=== PATIENT | female | born 1955 | race Caucasian/White ===

== ENCOUNTER 2020-11-17 03:38 | Observation (INO) | payer OTHER, SELFPAY ==
[2020-11-17] VITALS (23 sets, daily range): BP systolic 123–160; BP diastolic 54–89; PULSE 50–69; RESP 12–19; TEMP 36.1–36.9; O2SAT 96–100
--- NOTE | ~2020-11-17 | XR_ITS ---
EXAMINATION: XR retrograde pyelo w/stent RT EXAM DATE: 11/17/2020 13:39 INDICATION: Right-sided retrograde pyelogram, stent placement TECHNIQUE: Fluoroscopy used during XR retrograde pyelo w/stent RT performed by Dr. Nathen vitale MD. Total fluoroscopic time of 0.3 minutes. A total of 5 images obtained for the exam. The D AP for this procedure was 146 radcm2. FINDINGS: The right ureter was cannulated, injected. Mild right-sided hydronephrosis. A double-J ure teral stent was placed. Correlate with procedure note. IMPRESSION: Mild right hydronephrosis. Stent in position. Reviewed, dictated and finalized at location A.
--- NOTE | ~2020-11-17 | XR_ITS ---
EXAMINATION: XR abdomen/kub 1V DATE: 11/17/2020 07:03 INDICATION: Right flank pain. TECHNIQUE: A supine view of the abdomen was obtained. COMPARISON: CT abdomen and pelvis 11/17/2020 FINDINGS: There is a 4 mm stone in proximal right ureter. There is a 4 mm stone in left kidney. There are no dilated loops of bowel. There are phleboliths in the pelvis. IMPRESSION: 1. 4 mm stone in proximal right ureter. 2. 4 mm left kidney stone. Reviewed, dictated and finalized at location A.
--- NOTE | ~2020-11-17 | CT_ITS ---
EXAMINATION: CT abdomen pelvis wo con DATE: 11/17/2020 06:06 INDICATION: Right flank pain. TECHNIQUE: Computed tomography (CT) of the abdomen and pelvis was performed without intravenous contr ast. Automated exposure control and iterative reconstruction technique were employed. The dose-length product was 282.06 mGy-cm. COMPARISON: None. FINDINGS: The visualized portions of the lung bases demonstrate mild atelectasis. A calcified left amaris ng nodule is consistent with old granulomatous disease. No pleural effusion. The heart size is normal . No pericardial effusion. The liver, gallbladder, spleen, pancreas, and adrenal glands are normal. T here is a 3 mm stone in right kidney. There is mild right hydronephrosis. There is a 4 mm stone in pr oximal right ureter. There is asymmetric edema around the right kidney. There is a 4 mm stone in left kidney. There are no dilated loops of bowel. There is a small sliding hiatal hernia. There are no pa thologically enlarged lymph nodes. There is no free intraperitoneal fluid. There are healing right ri b fractures. There is lumbar levoscoliosis and severe spondylosis. IMPRESSION: 1. 4 mm stone in proximal right ureter with mild right hydronephrosis. 2. Bilateral nonobstructing kidney stones. 3. Small sliding hiatal hernia. Reviewed, dictated and finalized at location A.
--- NOTE | 2020-11-17 04:01 | ED.ABDPAIN ---
HPI - Abdominal Pain General Chief Complaint: Abdominal Pain Stated Complaint: rt flank pain Time Seen by Provider: 11/17/20 03:49 History of Present Illness HPI narrative: Patient is a 65-year-old female who presents ER with right flank pain. Sudden onset this evening. No real radiation. Different than her chronic back pain. Associate with dark urination. Denies urinary frequency urgency or dysuria. She is without fevers or chills or sweats. She does have some mild nausea. No previous history of kidney stones or kidney infections. She is found no alleviating factors for discomfort. Related Data Home Medications Medication Instructions Recorded Confirmed famotidine [Pepcid] 20 mg PO DAILY 11/17/20 propranolol PO 11/17/20 Allergies Allergy/AdvReac Type Severity Reaction Status Date / Time codeine AdvReac Unknown Verified 05/10/18 14:56 Sulfa (Sulfonamide AdvReac Unknown Verified 05/10/18 14:56 Antibiotics) Review of Systems Review of Systems: All systems reviewed & are unremarkable except as noted in HPI and below Constitutional: Constitutional: Denies chills, Denies fever(s) and Denies weakness Cardiovascular: Cardiovascular: Denies chest pain and Denies radiating jaw, neck or arm pain Respiratory: Respiratory: Denies cough and Denies dyspnea Gastrointestinal: Gastrointestinal: Denies abdominal pain, Denies diarrhea, Reports nausea and Denies vomiting Genitourinary: Genitourinary: Denies hematuria, Denies nocturia, Denies dysuria and Reports flank pain Comments: Dark-colored urine Musculoskeletal: Musculoskeletal: Denies back pain and Denies muscle cramps PMFSH Past Medical History Medical History (Updated 11/17/20 @ 06:57 by Darrick Siegel MD) Migraine Surgical History Surgical History (Updated 11/17/20 @ 04:01 by Darrick Siegel MD) History of tonsillectomy Social History Social History (Updated 11/17/20 @ 04:01 by Darrick Siegel MD) Smoking status: Never smoker Exam Narrative: Exam Narrative: GENERAL: Uncomfortable-appearing, well-nourished, and in no acute distress. HEAD: Normocephalic, atraumatic. ENT: Mucous membranes moist. CHEST: Clear to auscultation. No respiratory distress. HEART: Regular rate and rhythm. Normal peripheral pulses. ABDOMEN: Soft, nontender, nondistended. EXTREMITIES: Normal range of motion. No edema. SKIN: Warm, dry, no rash. NEURO: Alert and oriented x3. Course Reevaluation(s) Reevaluation #1: Upon initial evaluations patient's was very angry at the nurse for having missed an IV stick and began belittling him. I informed the that this behavior would not be tolerated in the ER. He then proceeded to get up and get more angry. I discussed with the that we were here to treat his and make her feel better that we understood his concerns. Patient then sat down became more quiet. Date: 11/17/20 Time: 04:25 Reevaluation #2: Patient informed of results. Discussed case with Dr. Bah. Unfortunately patient had a dose of ibuprofen at midnight and another 1-2 doses yesterday afternoon. She will not be able to get lithotripsy today but he can take her to have a stent. Admit for [place]. Date: 11/17/20 Time: 06:57 Vital Signs Vital signs: Vital Signs Temperature 97.8 F 11/17/20 03:42 Pulse Rate 65 11/17/20 03:42 Respiratory Rate 18 11/17/20 03:42 Blood Pressure 160/89 H 11/17/20 03:42 Pulse Oximetry 100 11/17/20 03:42 Temperature 97.8 F 11/17/20 05:01 Pulse Rate 52 L 11/17/20 06:09 Respiratory Rate 16 11/17/20 06:09 Blood Pressure 130/66 11/17/20 06:09 Pulse Oximetry 98 11/17/20 06:09 MDM - Abdominal Pain Lab Data Result diagrams: 11/17/20 04:06 11/17/20 04:49 Labs: Lab Results 11/17/20 11/17/20 11/17/20 Range/Units 04:06 04:49 05:18 WBC 8.0 (4.5-10.0) K/mm3 RBC 3.81 L (4.2-5.4) M/mm3 Hgb 12.8 (12.0-15.0) g/dL Hct
[2020-11-17 04:12] LABS: Basophils Absolute Auto 0.1 K/mm3 (0.0-0.1); Basophils Percent Auto 0.6 % (0.2-1.2); Eosinophils Absolute Auto 0.2 K/mm3 (0-0.3); Eosinophils Percent Auto 2.3 % (0-4.4); Hematocrit 39.1 % (37.0-47.0); Hemoglobin 12.8 g/dL (12.0-15.0); Immature Granulocyte Absolute 0.03 K/mm3 (0.00-0.031); Immature Granulocyte Percent A 0.4 % (0-0.5); Lymphocytes Absolute Auto 1.49 K/mm3 (0.9-3.2); Lymphocytes Percent Auto 18.7 % (18.3-44.2); Mean Corpuscular HGB Conc 32.7 g/dl (32-36); Mean Corpuscular Hemoglobin 33.6 pg (26-34); Mean Corpuscular Volume 102.6 fl (80-100); Monocytes Absolute Auto 0.9 K/mm3 (0.1-0.6); Monocytes Percent Auto 11.7 % (2.6-8.5); Neutrophils Absolute Auto 5.3 K/mm3 (1.3-6.7); Neutrophils Percent Auto 66.3 % (45.5-73.1); Platelet Count Result 241 k/mm3 (150-375); Red Blood Count 3.81 M/mm3 (4.2-5.4); Red Cell Distribution Width 12.6 % (11.5-14.5)
[2020-11-17] MEDS: ONDANSETRON INJ 4 MG/2 ML VIAL IV PUSH ×2 (04:29→07:09)
[2020-11-17] MEDS: MORPHINE SULFATE (*CRX) 4 MG/ML INJ IV PUSH ×2 (04:31→08:34)
[2020-11-17] MEDS: SODIUM CHLORIDE 0.9% IV 1,000 ML 999 ML IV CONT (04:34)
--- NOTE | 2020-11-17 04:47 | PC.NURSE ---
Patient updated on need of urine specimen. Patient states she was willing to attempt to void and get specimen via clean catch. While attempting to get patient out of bed, patient states she was too nauseous still and is unable to get out of bed. Patient educated on catheter and agreed to use catheter for urine collection.
--- NOTE | 2020-11-17 04:48 | PC.NURSE ---
of pt stated We'll just go to [facility] after failed IV attempt. Pts stated I dont want this RN coming back in the room again .
--- NOTE | 2020-11-17 04:51 | PC.NURSE ---
redrew pt for hemolyzed green top at this time
[2020-11-17 05:09] LABS: Anion Gap 5 mmol/L (8-16); Blood Urea Nitrogen 18 mg/dL (7-17); Calcium 8.4 mg/dL (8.4-10.2); Carbon Dioxide 26 mmol/L (22-30); Chloride 108 mmol/L (98-107); Estimated CRCL calculation 48 ml/min; Estimated Glomerular Filt Rate > 60; Glucose 138 mg/dL (65-105); Potassium 4.1 mmol/L (3.4-5.0); Sodium 139 mmol/L (137-145)
[2020-11-17 05:42] LABS: Add Urine Microscopic? YES; Appearance Urine Cloudy (Clear); Bacteria Urine Trace /hpf; Bilirubin Urine Negative (Negative); Blood Urine 3+ (Negative); Color Urine Yellow (Yellow); Glucose Urine UA Negative (Negative); Ketones Urine Trace mg/dL (Negative); Leukocyte Esterase Ur Negative LEU/UL (Negative); Mucus Urine Rare /lpf; Nitrate Urine Negative (Negative); Protein Urine 2+ mg/dL (Negative); RBC Urine >75 /hpf (0-2); Specific Grav Ur 1.016 (1.001-1.035); Urobilinogen Urine Negative mg/dL (<2.0)
--- NOTE | 2020-11-17 05:56 | PC.NURSE ---
Patient reports pain has significancy improved and does not want another dose of morphine at this time.
--- NOTE | 2020-11-17 07:50 | ADMGEN ---
This patient, Maricruz Starkey, was admitted to Medical Room 248-01. Patient/family oriented to hospital policies and general routines including ID bracelet, bed and alarms, visiting hours, pain management, procedures, bathroom and other care routines, personal items, smoking policy, room service/diet, and visiting hours. Information on how to activate the Rapid Response Team has been discussed. Patient/Family are encouraged to report perceived risks to care and to ask questions if they do not understand what they are told or what they should do.
[2020-11-17] MEDS: SODIUM CHLORIDE 0.9% IV 1,000 ML 125 ML IV CONT (08:33)
--- NOTE | 2020-11-17 10:33 | PC.NURSE ---
Report called to Kimberly dutta.
--- NOTE | 2020-11-17 11:13 | PM.IMHP ---
H&P: HPI History of Present Illness Date/Time: 11/17/20 11:13 This is a 65-year-old female admitted through the emergency room. She has no prior history of stone disease. She had acute onset of right flank pain last night. This prompted a visit to the emergency room. She was diagnosed with a 4 mm proximal right ureteral stone. She had some dark urine. No symptoms of urinary tract infection. No dysuria. She did not feel like she could go home from the emergency room so she would like intervention for her stone. Chief Complaint: Calculus ureter Review of Systems Review of Systems: All systems reviewed & are unremarkable except as noted in HPI and below PMFSH Past Medical History Medical History (Updated 11/17/20 @ 11:15 by Aramis Bah MD) Migraine Surgical History Surgical History (Updated 11/17/20 @ 04:01 by Darrick Siegel MD) History of tonsillectomy Family History Family History (Updated 11/17/20 @ 08:05 by Mine Turner RN) Mother Cerebrovascular accident Sibling Cerebrovascular accident Father Dementia Social History Social History (Updated 11/17/20 @ 04:01 by Darrick Siegel MD) Smoking status: Never smoker Alcohol intake: never Substance use: never Substance use type: does not use Spiritual care concerns: No Meds Home Medications and Allergies Home Medications Medication Instructions Recorded Confirmed Type famotidine [Pepcid] 20 mg PO DAILY 11/17/20 11/17/20 History propranolol 120 mg PO DAILY 11/17/20 11/17/20 History Allergies Allergy/AdvReac Type Severity Reaction Status Date / Time codeine AdvReac Severe Nausea Verified 11/17/20 07:58 Sulfa (Sulfonamide AdvReac Severe Hives Verified 11/17/20 07:58 Antibiotics) Vital Signs Vital Signs - 24 hr 11/17/20 03:42 11/17/20 03:49 11/17/20 04:49 Temperature 97.8 F Pulse Rate 65 53 L 50 L Respiratory Rate 18 16 12 Blood Pressure 160/89 H 160/89 H 147/80 H Pulse Oximetry 100 100 100 11/17/20 05:01 11/17/20 06:08 11/17/20 06:09 Temperature 97.8 F Pulse Rate 52 L 52 L 52 L Respiratory Rate 14 12 16 Blood Pressure 154/86 H 130/66 130/66 Pulse Oximetry 99 98 98 11/17/20 06:31 11/17/20 07:03 11/17/20 07:48 Temperature 97.0 F L Pulse Rate 53 L 66 52 L Respiratory Rate 14 16 16 Blood Pressure 134/67 132/76 149/67 H Pulse Oximetry 97 100 98 11/17/20 08:16 11/17/20 09:16 11/17/20 10:32 Temperature 97.1 F L Pulse Rate 52 L Respiratory Rate 16 16 Blood Pressure 153/64 H Pulse Oximetry 98 98 98 Exam Const: General: cooperative and in distress Nutritional Appearance: thin and underweight HENMT: Head: normal to inspection General nose exam: Normal external nose present Face and sinus: normal facial exam Eyes: General: appearance normal, both eyes and all related structures Resp: Effort & Inspection: normal respiratory effort and able to speak in complete sentences : General: Yes CVA tenderness Skin: General skin exam: normal color and no rashes or lesions noted Neuro: General: patient oriented x3 Extrem: General: normal to inspection Psych: Appearance: grossly normal H&P: Results Labs Labs: Short CBC 11/17/20 Range/Units 04:06 WBC 8.0 (4.5-10.0) K/mm3 Hgb 12.8 (12.0-15.0) g/dL Hct 39.1 (37.0-47.0) % Plt Count 241 (150-375) k/mm3 BMP 11/17/20 04:49 Sodium 139 Potassium 4.1 Chloride 108 H Carbon Dioxide 26 BUN 18 H Creatinine 0.80 Glucose 138 H Calcium 8.4 Urine 11/17/20 Range/Units 05:18 Urine Color Yellow (Yellow) Urine Appearance Cloudy H (Clear) Urine pH 7.0 (5.0-9.0) Ur Specific [place] 1.016 (1.001-1.035) Urine Protein 2+ H (Negative) mg/dL Urine Glucose (UA) Negative (Negative) mg/dL Assessment and Plan Assessment and plan (1) Obstruction of ureteropelvic junction (UPJ) due to stone: Code(s): N20.1 - Calculus of ureter Status: Acute A
--- NOTE | 2020-11-17 11:27 | WPDHPUPDATE1 ---
History and Physical Update Update Date/Time: 11/17/20 11:27 History and Physical has been reviewed, including an updated exam of the patient. There are NO changes in the patient's condition. Risks, benefits, and alternatives have been discussed and questions answered. Patient agrees to proceed with procedure. Proceed with cystoscopy, right retrograde pyelogram, right ureteral stent placement, possible ureteroscopy with stone extraction and laser.
--- NOTE | 2020-11-17 12:25 | PC.NURSE ---
To OR via stretcher. Family at bedside.
--- NOTE | 2020-11-17 12:35 | WPDANESEPPF ---
Anes - Initial Pre Proc Eval Procedure: Operation Date: 11/17/20 13:00 Proposed Procedures p Cystoscopy,Right Ureteroscopy,Right Retrograde Pyelogram,Right Stone Extraction,Possible Holmium Laser,Possible Stent Placement - Nathen Thrasher MD Date/Time: 11/17/20 12:35 Surgeon: Aramis Bah MD Pre Op Diagnosis: upj obstructing stone Patient Data Age: 65 Gender: F Height: 5 ft 2 in Weight: 52.1 kg Last Vital Signs Temp 36.2 C L 11/17/20 10:32 Pulse 52 L 11/17/20 10:32 Resp 16 11/17/20 10:32 BP 153/64 H 11/17/20 10:32 Pulse Ox 98 11/17/20 10:32 Allergies Allergy/AdvReac Type Severity Reaction Status Date / Time codeine AdvReac Severe Nausea Verified 11/17/20 07:58 Sulfa (Sulfonamide AdvReac Severe Hives Verified 11/17/20 07:58 Antibiotics) Home Medications Medication Instructions Recorded Confirmed Type famotidine [Pepcid] 20 mg PO DAILY 11/17/20 11/17/20 History propranolol 120 mg PO DAILY 11/17/20 11/17/20 History Laboratory Tests 11/17/20 11/17/20 11/17/20 04:06 04:49 05:18 WBC 8.0 K/mm3 K/mm3 (4.5-10.0) RBC 3.81 M/mm3 L M/mm3 (4.2-5.4) Hgb 12.8 g/dL g/dL (12.0-15.0) Hct 39.1 % % (37.0-47.0) MCV 102.6 fl H fl (80-100) MCH 33.6 pg pg (26-34) MCHC 32.7 g/dl g/dl (32-36) RDW 12.6 % % (11.5-14.5) Plt Count 241 k/mm3 k/mm3 (150-375) MPV 10.0 fl fl (7.4-10.4) Immature Gran % (Auto) 0.4 % % (0-0.5) Neut % (Auto) 66.3 % % (45.5-73.1) Lymph % (Auto) 18.7 % % (18.3-44.2) Yell % (Auto) 11.7 % H % (2.6-8.5) Eos % (Auto) 2.3 % % (0-4.4) Baso % (Auto) 0.6 % % (0.2-1.2) Lymph # (Auto) 1.49 K/mm3 K/mm3 (0.9-3.2) Yell # (Auto) 0.9 K/mm3 H K/mm3 (0.1-0.6) Eos # (Auto) 0.2 K/mm3 K/mm3 (0-0.3) Baso # (Auto) 0.1 K/mm3 K/mm3 (0.0-0.1) Abs Immat Gran (auto) 0.03 K/mm3 K/mm3 (0.00-0.031) Absolute Neuts (auto) 5.3 K/mm3 K/mm3 (1.3-6.7) Absolute Nucleated RBC 0.0 K/mm3 K/mm3 (0.0-0.012) Nucleated RBC % 0.0 % % (0.0-0.2) Sodium 139 mmol/L mmol/L (137-145) Potassium 4.1 mmol/L mmol/L (3.4-5.0) Chloride 108 mmol/L H mmol/L (98-107) Carbon Dioxide 26 mmol/L mmol/L (22-30) Anion Gap 5 mmol/L L mmol/L (8-16) BUN 18 mg/dL H mg/dL (7-17) Creatinine 0.80 mg/dL mg/dL (0.7-1.0) Estim Creat Clear Calc 48 ml/min ml/min Estimated GFR > 60 (59 - ) Glucose 138 mg/dL H mg/dL (65-105) Calcium 8.4 mg/dL mg/dL (8.4-10.2) Urine Color Yellow (Yellow) Urine Appearance Cloudy H (Clear) Urine pH 7.0 (5.0-9.0) Ur Specific [place] 1.016 (1.001-1.035) Urine Protein 2+ mg/dL H mg/dL (Negative) Urine Glucose (UA) Negative mg/dL mg/dL (Negative) Urine Ketones Trace mg/dL mg/dL (Negative) Ur Blood (Man) 3+ H (Negative) Urine Nitrate Negative (Negative) Urine Bilirubin Negative (Negative) Urine Urobilinogen Negative mg/dL mg/dL (<2.0) Leukocyte Esterase Rfl Negative KONSTANTIN/UL KONSTANTIN/UL (Negative) Urine RBC >75 /hpf H /hpf (0-2) Urine WBC 10-15 /hpf H /hpf Urine Bacteria Trace /hpf /hpf Urine Mucus Rare /lpf /lpf Patient hx anesthesia problems: none Family hx anesthesia problems: none PMFSH Past Medical History Medical History (Updated 11/17/20 @ 11:15 by Aramis Bah MD) Migraine Surgical History Surgical History History of tonsillectomy Family History Family History Mother Cerebrovascular accident
[2020-11-17] MEDS: LACTATED RINGERS 1,000 ML 30 ML IV CONT ×2 (12:53→13:47)
[2020-11-17] MEDS: ceFAZolin 2 GM/D5W 50 ML 2 GM/50 ML BAG IVPB (13:14)
--- NOTE | 2020-11-17 13:37 | P.OP_ITS ---
Procedure Note - Detailed Date of procedure: 11/17/20 Pre-op diagnosis: upj obstructing stone Right proximal ureteral calculus Post-op diagnosis: same Procedure performed: Cystoscopy, right retrograde pyelogram, right ureteroscopy with stone extraction, right ureteral stent placement 4.8 Turk[place] contour Description of procedure: Patient is taken to the operative suite and correctly identified. Once anesthesia was obtained she was placed in a dorsal lithotomy position and prepped and draped usual sterile fashion. Twenty-two Turkmen scope was inserted the bladder. There is no tumors noted. Right ureteral orifice was cannulated with a guidewire. We dilated with an 8/10 dilator. There rigid ureteral scope was then inserted into the ureter. The stone had migrated into the mid ureter. Was visualized. Using an escape basket retrieved and removed in 1 piece and sent it for analysis. Pyelogram was then performed to confirm placement of the stent. 4.8 Turkmen contour stent was then placed with the proximal end coiled in the renal pelvis and the distal end in the bladder. Bladder was drained. 2% viscous lidocaine was inserted into the urethra patient is taken recovery stable condition. She will follow up in a week's time for stent removal. Anesthesia: GLMA Surgeon: Nathen Thrasher MD Drains: Yes Packing: No Pathology: yes Complications: No immediate complications Condition: stable Disposition: PACU
--- NOTE | 2020-11-17 13:40 | PM.DS ---
DS: Admitting Diagnosis Admitting Diagnosis Admitting Diagnosis: Obstructing right ureteral calculus 4 mm DS: Discharge Diagnosis Discharge Diagnosis (1) Right ureteral calculus: Code(s): N20.1 - Calculus of ureter Status: Acute DS: Summary Hospital Course Reason for hospitalization: Obstructing right ureteral calculus with hydronephrosis Hospital Course: Patient was admitted for pain control and further management. She was taken to the operative suite where a cystoscopy, right retrograde pyelogram, right ureteroscopy with stone extraction, right ureteral stent placement 4.8 [place] contour was performed. Patient will be discharged to home once she tolerates a diet. She will follow up in a week's time for stent removal in the office and is to call for that appointment. Status at Discharge Functional status at discharge: independent ambulation Time Spent with Patient Time attestation: Total time spent providing and/or coordinating discharge services: Exam Const: General: cooperative and comfortable DS: Data Data Completed and Pending Pending studies at discharge: Pending at discharge 11/17/20 13:34 Surgical [PTH] Routine Labs on day of discharge: Labs from last 24 hours 11/17/20 11/17/20 11/17/20 05:18 04:49 04:06 WBC 8.0 RBC 3.81 L Hgb 12.8 Hct 39.1 MCV 102.6 H MCH 33.6 MCHC 32.7 RDW 12.6 Plt Count 241 MPV 10.0 Immature Gran % (Auto) 0.4 Neut % (Auto) 66.3 Lymph % (Auto) 18.7 [place] % (Auto) 11.7 H Eos % (Auto) 2.3 Baso % (Auto) 0.6 Lymph # (Auto) 1.49 [place] # (Auto) 0.9 H Eos # (Auto) 0.2 Baso # (Auto) 0.1 Abs Immat Gran (auto) 0.03 Absolute Neuts (auto) 5.3 Absolute Nucleated RBC 0.0 Nucleated RBC % 0.0 Sodium 139 Potassium 4.1 Chloride 108 H Carbon Dioxide 26 Anion Gap 5 L BUN 18 H Creatinine 0.80 Estim Creat Clear Calc 48 Estimated GFR > 60 Glucose 138 H Calcium 8.4 Urine Color Yellow Urine Appearance Cloudy H Urine pH 7.0 Ur Specific [place] 1.016 Urine Protein 2+ H Urine Glucose (UA) Negative Urine Ketones Trace Ur Blood (Man) 3+ H Urine Nitrate Negative Urine Bilirubin Negative Urine Urobilinogen Negative Leukocyte Esterase Rfl Negative Urine RBC >75 H Urine WBC 10-15 H Urine Bacteria Trace Urine Mucus Rare Discharge Plan Discharge Attending physician on discharge: Nathen Thrasher Discharging Clinician: Nathen Thrasher Patient Disposition: Home, Self-Care Activity: december shower Diet: regular Discharge Instructions: December discharged home when awake and alert. Follow-up next week for stent removal. Call for that appointment. Prescriptions for pain meds and antibiotics sent to patient's pharmacy at [facility] Patient Instructions: Antibiotic Form Stand Alone Forms: General Discharge Information Follow-up/Referrals: Nathen Thrasher MD [Physician] - (Follow up next week for stent removal. Call for appointment) Discharge Medications: Continued famotidine [Pepcid] 20 mg Tablet 20 mg PO DAILY RF: 0 propranolol 120 mg capsule,extended release 24 hr 120 mg PO DAILY RF: 0 Date of admission: 11/17/20 06:55 Primary Care Provider: Wesley,Kayode [place] Admitting Provider: Aramis Bah Attending physician on admission: Aramis Bah Condition: Stable
--- NOTE | 2020-11-17 15:00 | PC.NURSE ---
Return from OR via stretcher. Family at bedside.
[2020-11-17] MEDS: ACETAMINOPHEN 325 MG TABLET 650 MG PO (15:52)
== END 2020-11-17 18:40 | disposition home or self-care (01) ==
LOC: ANHED 06:57 → ANH2MED 07:17
PROVIDERS: Urology; Admitting Provider Urology; Emergency Provider Emergency Medicine; PCP General Practice; Visit Provider Urology
PROC: (CPT 52352; principal; 2020-11-17 13:00)
DX: N13.2 Hydronephrosis with renal and ureteral calculous obstruction (principal); K44.9 Diaphragmatic hernia without obstruction or gangrene
CPT/HCPCS: 52356; 36415; 51701; 74018; 74176; 74420; 80048; 81001; 82365; 85025; 87077; 87086; 87088; 87186; 88300; 96361; 96374; 96375; 96376; 99285; A9270; C1758; C1769; C2617; G0378; J0330; J0690; J1100; J2250; J2270; J2405; J2704; J3010; J7030; J7120; Q9966

== ENCOUNTER 2021-07-01 01:22 | Emergency (ER) | payer OTHER, SELFPAY ==
--- NOTE | ~2021-07-01 | CT_ITS ---
EXAMINATION: CT abdomen pelvis wo con EXAM DATE: 07/01/2021 02:45 INDICATION: Left flank pain hx of stones. TECHNIQUE: Spiral CT of the abdomen and pelvis was performed without contrast. Axial, coronal and sag ittal images were reviewed. The dose-length product (DLP) for this examination was 159.02 mGy-cm. T he exposure was tailored according to patient size (auto mA exposure control), and iterative reconstr uction (ASIR) was used as additional dose reduction technique. Comparison is made to prior examinatio n from 11/17/2020. FINDINGS: There is a 6 mm stone in the left ureteropelvic junction with mild to moderate obstructive nephropathy. Multiple pelvic calcifications are believed to be phleboliths. There is 2 mm right infer ior calyceal stone. Previously seen right UPJ stone has resolved. The uterus is unremarkable. The bladder is unremarkable. The liver, spleen, adrenal glands and pancreas are unremarkable. Gallbladd er is unremarkable. No biliary obstruction. There is no retroperitoneal or pelvic lymphadenopathy. The appendix is not positively visualized. There is small to moderate-sized gastroesophageal hiatal hernia, potentially could be causing the thickened appearance to the wall of this region cancer not e xcludable.. There is moderate amount of colonic stool. No free intraperitoneal gas. The heart is normal in size. There are no pericardial or pleural effusions. The lung bases are unremarkable. T here are no osteoblastic or osteolytic lesions identified. There is moderate left-sided levoscoliosis . Moderate to severe lumbar disc disease. IMPRESSION: 1. Left UPJ 6 mm stone, mild to moderate obstructive nephropathy. 2. Punctate right nephrolithiasis. 3. Small to moderate hiatal hernia with thickened appearing gastroesophageal junction wall; recommen d endoscopy to exclude cancer. 4. Moderate colonic stool. Reviewed, dictated and finalized at location A. RONMENTAL HEALTH AIDE IMPRESSION: 1. Left UPJ 6 mm stone, mild to moderate obstructive nephropathy. 2. Punctate right nephrolithiasis. 3. Small to moderate hiatal hernia with thickened appearing gastroesophageal j unction wall; recommend endoscopy to exclude cancer. 4. Moderate colonic stool.
--- NOTE | ~2021-07-01 | XR_ITS ---
EXAMINATION: XR abdomen/kub 1V EXAM DATE: 07/01/2021 06:15 INDICATION: L UPJ stone. TECHNIQUE: Frontal projection of the upper abdomen, frontal projection lower abdomen/pelvis for inter pretation. Correlation is made to CT abdomen pelvis from earlier same date. FINDINGS: Probable identification of the left UPJ stone, indicated lateral to the left L2 transverse process. There is moderate amount of colonic stool and gas. There is moderate lumbar levoscoliosis. There is no organomegaly. IMPRESSION: 1. Left UPJ stone identified. Reviewed, dictated and finalized at location A. [employer]
[2021-07-01 01:26] VITALS: BP 149/77; PULSE 72; RESP 18; TEMP 36.5; O2SAT 100
[2021-07-01 02:14] LABS: Basophils Percent Auto 0.2 % (0.2-1.2); Eosinophils Percent Auto 0.1 % (0-4.4); Hematocrit 37.5 % (37.0-47.0); Hemoglobin 12.8 g/dL (12.0-15.0); Immature Granulocyte Absolute 0.05 K/mm3 (0.00-0.031); Immature Granulocyte Percent A 0.4 % (0-0.5); Lymphocytes Absolute Auto 0.87 K/mm3 (0.9-3.2); Lymphocytes Percent Auto 7.3 % (18.3-44.2); Mean Corpuscular HGB Conc 34.1 g/dl (32-36); Mean Corpuscular Volume 99.7 fl (80-100); Mean Platelet Volume 9.9 fl (7.4-10.4); Monocytes Absolute Auto 1.4 K/mm3 (0.1-0.6); Monocytes Percent Auto 11.9 % (2.6-8.5); Neutrophils Absolute Auto 9.5 K/mm3 (1.3-6.7); Neutrophils Percent Auto 80.1 % (45.5-73.1); Platelet Count Result 239 k/mm3 (150-375); Red Blood Count 3.76 M/mm3 (4.2-5.4); Red Cell Distribution Width 12.4 % (11.5-14.5); White Blood Count 11.9 K/mm3 (4.5-10.0)
[2021-07-01 02:24] LABS: Alanine Aminotransferase 24 U/L (4-35); Albumin Level 4.2 g/dL (3.5-5.1); Alkaline Phosphatase 75 U/L (38-126); Anion Gap 6 mmol/L (8-16); Aspartate Amino Transferase 38 U/L (14-36); Blood Urea Nitrogen 17 mg/dL (7-17); Calcium 9.5 mg/dL (8.4-10.2); Carbon Dioxide 27 mmol/L (22-30); Chloride 98 mmol/L (98-107); Estimated Glomerular Filt Rate > 60; Glucose 123 mg/dL (65-110); Potassium 4.1 mmol/L (3.4-5.0); Sodium 131 mmol/L (137-145)
[2021-07-01 03:11] VITALS: BP 142/67; PULSE 64; RESP 16; O2SAT 100
[2021-07-01] MEDS: SODIUM CHLORIDE 0.9% IV 1,000 ML 999 ML IV CONT (03:30)
[2021-07-01] MEDS: ONDANSETRON INJ 4 MG/2 ML VIAL IV PUSH (03:32)
[2021-07-01 03:45] LABS: Add Urine Microscopic? YES; Appearance Urine Cloudy (Clear); Bacteria Urine Trace /hpf; Bilirubin Urine Negative (Negative); Blood Urine 3+ (Negative); Color Urine Yellow (Yellow); Glucose Urine UA Negative (Negative); Ketones Urine 1+ mg/dL (Negative); Leukocyte Esterase Ur Negative LEU/UL (Negative); Mucus Urine Rare /lpf; Nitrate Urine Negative (Negative); Protein Urine Negative (Negative); RBC Urine >75 /hpf (0-2); Specific Grav Ur 1.016 (1.001-1.035); Squamous Epithelial Cell Urine Occasional /hpf (Few); Urobilinogen Urine Negative mg/dL (<2.0); WBC Urine 16-20 /hpf
[2021-07-01 04:34] VITALS: BP 115/59; PULSE 65; RESP 16; O2SAT 100
--- NOTE | 2021-07-01 06:33 | ED.ABDPAIN ---
HPI - Abdominal Pain General Chief Complaint: Abdominal Pain Stated Complaint: Left abd pain,flank pain Time Seen by Provider: 07/01/21 01:55 Source: patient History of Present Illness HPI narrative: Patient presents with left-sided flank pain that started a couple days ago pain is getting progressively worse and radiating up her back she was concerned so she came to the ER for evaluation. She reports a history of right ureteral stone requiring stent placement earlier this year and she reports her symptoms are very similar to her prior stone. Reports her urine is in start but denies pain with urination or increased urinary frequency. Her pain is achy, constant, worse with moving around in certain body positions. Related Data Home Medications Medication Instructions Recorded Confirmed famotidine [Pepcid] 20 mg PO DAILY 11/17/20 11/17/20 propranolol 120 mg PO DAILY 11/17/20 11/17/20 Allergies Allergy/AdvReac Type Severity Reaction Status Date / Time codeine AdvReac Severe Nausea Verified 11/17/20 07:58 Sulfa (Sulfonamide AdvReac Severe Hives Verified 11/17/20 07:58 Antibiotics) Review of Systems Review of Systems: CONSTITUTIONAL: Denies fever, chills, or sweats. EYES: Denies visual changes, redness, or discharge. ENT: Denies rhinorrhea, congestion, sore throat, or otalgia. CARDIOVASCULAR: Denies chest pain, palpitations, or edema. RESPIRATORY: Denies cough or dyspnea. GASTROINTESTINAL: Denies nausea, vomiting, or diarrhea. GENITOURINARY: Denies dysuria or hematuria. SKIN: Denies rash or itching. MUSCULOSKELETAL: Denies joint pain, or myalgia. NEUROLOGIC: Denies headache, numbness, dizziness, or weakness. PSYCHIATRIC: Denies anxiety or depression. All systems reviewed & are unremarkable except as noted in HPI and below PMFSH Past Medical History Medical History Migraine Surgical History Surgical History History of tonsillectomy Family History Family History Mother Cerebrovascular accident Sibling Cerebrovascular accident Father Dementia Social History Social History Smoking status: Never smoker Alcohol intake: never Substance use: never Substance use type: does not use Spiritual care concerns: No Exam Narrative: GENERAL: Well-appearing, well-nourished, and in no acute distress. HEAD: Normocephalic, atraumatic. EYES: PERRLA and EOMI. ENT: Nares clear, no rhinorrhea or epistaxis. Mucous membranes moist. NECK: Supple. No masses. No JVD ABDOMEN: Soft, nontender, nondistended, normal active bowel sounds. BAKC: No midline back pain minimal CVA tenderness on the left EXTREMITIES: Normal range of motion. No edema. SKIN: Warm, dry, no rash. NEURO: No focal deficits. Alert and oriented x3. PSYCH: Normal mood and affect. Course Reevaluation(s) Reevaluation #1: Uurology is evaluating patient for proximal stone patient's pain is well controlled after Tylenol Date: 07/01/21 Time: 06:35 Vital Signs Vital signs: Vital Signs Temperature 36.5 C 07/01/21 01:26 Pulse Rate 72 07/01/21 01:26 Respiratory Rate 18 07/01/21 01:26 Blood Pressure 149/77 H 07/01/21 01:26 Pulse Oximetry 100 07/01/21 01:26 Temperature 36.5 C 07/01/21 01:26 Pulse Rate 62 07/01/21 06:39 Respiratory Rate 18 07/01/21 06:39 Blood Pressure 132/65 07/01/21 06:39 Pulse Oximetry 99 07/01/21 06:39 MDM - Abdominal Pain MDM Narrative Medical decision making narrative: H&P as above, vss, pt looks clinically well, exam reassuring, labs with hematuria otherwise clinically unremarkable, img with left UPJ stone, additional labs/img considered, symptomatic relief available as needed, patient was treated with Tylenol on reevaluation pt continues to looks clinically well, reports pain
[2021-07-01 06:39] VITALS: BP 132/65; PULSE 62; RESP 18; O2SAT 99
--- NOTE | 2021-07-01 06:47 | WPDURCON ---
Assessment and Plan Assessment and plan (1) Obstruction of ureteropelvic junction (UPJ) due to stone: Code(s): N20.1 - Calculus of ureter Status: Acute Additional Plan - patient to be discharged home with oral pain medication. - The patient instructed to stop all aspirin, nonsteroidal anti-inflammatories. The patient last use of ibuprofen was 2 days ago. - Offered the patient medical expulsive therapy, ureteroscopy, ureteral stenting, ESWL. given the location of the stone and visibility on KUB, Plan for outpatient ESWL procedure. risks of the procedure including but limited to infection, bleeding, pain, inability to fragment the stone, need for additional operations and complication of anesthesia discussed. The patient agrees to proceed with left ESWL later this week. Urology Consult Note HPI Date Seen: 07/01/21 Primary Care Provider: Dariana Rodriguez, LEIGHANN Consult Narrative Narrative: Maricruz Stakrey is a 65 year old female With a history of nephrolithiasis. She presented with nausea and abdominal pain. Patient was found on CT scan to have an obstructing left proximal ureteral stone. Urology was called to evaluate Review of Systems Constitutional: Constitutional: Reports as per HPI Eyes: Eyes: Reports no additional eye complaints ENT: Reports system reviewed and no additional complaints, except as documented Cardiovascular: Cardiovascular: Reports no additional cardiovascular complaints Respiratory: Respiratory: Reports no additional respiratory complaints Gastrointestinal: Gastrointestinal: Reports no additional gastrointestinal complaints and Reports nausea Musculoskeletal: Musculoskeletal: Reports no additional musculoskeletal complaints Psychiatric: Psychiatric: Reports no additional psychiatric complaints Endocrine: Endocrine: Reports no additional endocrine complaints [facility] Past Medical History Medical History Migraine Surgical History Surgical History History of tonsillectomy Family History Family History Mother Cerebrovascular accident Sibling Cerebrovascular accident Father Dementia Social History Social History Smoking status: Never smoker Alcohol intake: never Substance use: never Substance use type: does not use Spiritual care concerns: No Meds Home Medications and Allergies Home Medications Medication Instructions Recorded Confirmed Type famotidine [Pepcid] 20 mg PO DAILY 11/17/20 11/17/20 History propranolol 120 mg PO DAILY 11/17/20 11/17/20 History oxycodone-acetaminophen 1 tablet PO Q4H PRN #10 tablet 07/01/21 Rx Allergies Allergy/AdvReac Type Severity Reaction Status Date / Time codeine AdvReac Severe Nausea Verified 11/17/20 07:58 Sulfa (Sulfonamide AdvReac Severe Hives Verified 11/17/20 07:58 Antibiotics) Vital Signs Vital Signs - 24 hr 07/01/21 01:26 07/01/21 03:11 07/01/21 04:34 Temperature 36.5 C Pulse Rate 72 64 65 Respiratory Rate 18 16 16 Blood Pressure 149/77 H 142/67 H 115/59 L Pulse Oximetry 100 100 100 07/01/21 06:39 Temperature Pulse Rate 62 Respiratory Rate 18 Blood Pressure 132/65 Pulse Oximetry 99 Exam Narrative: patient is awake and alert. She is in no acute distress. Breathing unlabored. Abdomen is soft. She has no significant CVA tenderness at this time Results Labs CBC & Chem 7: 07/01/21 02:01 07/01/21 02:01 Labs: Short CBC 07/01/21 Range/Units 02:01 WBC 11.9 H (4.5-10.0) K/mm3 Hgb 12.8 (12.0-15.0) g/dL Hct 37.5 (37.0-47.0) % Plt Count 239 (150-375) k/mm3 BMP 07/01/21 02:01 Sodium 131 L Potassium 4.1 Chloride 98 Carbon Dioxide 27 BUN 17 Creatinine 0.90 Glucose 123 H Calcium 9.5 Li
== END 2021-07-01 06:53 | disposition home or self-care (01) ==
PROVIDERS: Emergency Provider Emergency Medicine; PCP Physician Assistant
DX: N13.8 Other obstructive and reflux uropathy (principal); N20.1 Calculus of ureter; N20.0 Calculus of kidney; K44.9 Diaphragmatic hernia without obstruction or gangrene
CPT/HCPCS: 36415; 74018; 74176; 80053; 81001; 85025; 87077; 87086; 87186; 96361; 96374; 96375; 99284; J0131; J2405; J7030

== ENCOUNTER → 2021-07-11 12:39 | Outpatient (CLI) | payer OTHER, SELFPAY ==
--- NOTE | ~2021-07-11 | XR_ITS ---
EXAMINATION: XR abdomen/kub 1V DATE: 07/11/2021 13:03 INDICATION: Left ureteral stone. TECHNIQUE: A supine view of the abdomen on 2 radiographs was obtained. COMPARISON: CT abdomen and pelvis 07/01/2021 FINDINGS: There are no dilated loops of bowel. There is a moderate volume of stool in the colon. Ther e are phleboliths in the pelvis. There is a 4 mm stone in proximal left ureter. IMPRESSION: 1. 4 mm stone in proximal left ureter. Reviewed, dictated and finalized at location A. CLOTH INSPECTOR
== END ==
PROVIDERS: PCP Physician Assistant; Visit Provider Nurse Practitioner Adult Health
DX: N20.1 Calculus of ureter (principal)
CPT/HCPCS: 74018

== ENCOUNTER 2021-07-13 17:05 | Observation (INO) | payer OTHER, SELFPAY ==
--- NOTE | ~2021-07-13 | XR_ITS ---
EXAMINATION: XR retrograde pyelo w/stent LT DATE: 07/14/2021 11:20 INDICATION: Left ureteral stone. TECHNIQUE: 6 intraoperative fluoroscopic views of the abdomen and pelvis were obtained. I was not pre sent. Fluoroscopy exposure time was 19 seconds. COMPARISON: Abdomen radiographs 07/13/2021 FINDINGS: There is a 4 mm stone in proximal left ureter. The left-sided retrograde pyelogram demonstr ates left hydronephrosis. The final images demonstrate a left internal ureteral stent in expected pos ition. IMPRESSION: 1. 4 mm stone in proximal left ureter with left internal ureteral stent in expected position. Reviewed, dictated and finalized at location A. RVISOR CONTINGENTS IMPRESSION: 1. 4 mm stone in proximal left ureter with left internal ureteral stent in expe cted position.
--- NOTE | ~2021-07-13 | XR_ITS ---
EXAMINATION: XR abdomen/kub 1V DATE: 07/13/2021 22:42 INDICATION: Kidney stone. Recent lithotripsy. TECHNIQUE: A supine view of the abdomen on 2 radiographs was obtained. COMPARISON: Abdomen radiographs 07/11/2021 FINDINGS: There are no dilated loops of bowel. There is a moderate volume of stool in the colon. Ther e is a 4 mm stone in proximal left ureter. IMPRESSION: 1. Unchanged 4 mm stone in proximal left ureter. Reviewed, dictated and finalized at location A. PROFESSIONAL
[2021-07-13 17:12] VITALS: BP 152/80; PULSE 80; RESP 18; TEMP 37; O2SAT 100
[2021-07-13 21:46] VITALS: BP 138/66; PULSE 73; O2SAT 100
--- NOTE | 2021-07-13 22:46 | ED.ABDPAIN ---
HPI - Abdominal Pain General Chief Complaint: Abdominal Pain Stated Complaint: Kidney Stone Time Seen by Provider: 07/13/21 22:29 Source: patient, RN notes reviewed and old records reviewed Mode of arrival: ambulatory Limitations: no limitations History of Present Illness HPI narrative: This is a 65 year old female with history of kidney stones s/p lithotripsy who presents for evaluation of left flank pain. She was diagnosed with left proximal ureteral stone 2 weeks ago. She had lithotripsy performed on 07/04/21. She has been taking Tylenol for her pain. She was doing well and having minimal pain until Friday. She was evaluated by urology and Friday with an xray. She was still found to have a 4 mm left proximal ureteral stone. She told them she want to try to pass . Her pain is located left flank and it intermittently radiates to her left lower abdomen. She has occasional nausea but denies fever, chills or vomiting. She denies hematuria or dysuria. Related Data Home Medications Medication Instructions Recorded Confirmed famotidine [Pepcid] 20 mg PO DAILY 11/17/20 11/17/20 propranolol 120 mg PO DAILY 11/17/20 11/17/20 Allergies Allergy/AdvReac Type Severity Reaction Status Date / Time codeine AdvReac Severe Nausea Verified 07/13/21 22:56 Sulfa (Sulfonamide AdvReac Severe Hives Verified 07/13/21 22:56 Antibiotics) Review of Systems Review of Systems: All systems reviewed & are unremarkable except as noted in HPI and below PMFSH Past Medical History Medical History (Updated 07/14/21 @ 01:17 by Rebecca Coleman MD) Bilateral kidney stones Migraine Scoliosis Surgical History Surgical History History of tonsillectomy Family History Family History Mother Cerebrovascular accident Sibling Cerebrovascular accident Father Dementia Social History Social History Smoking status: Never smoker Alcohol intake: never Substance use: never Substance use type: does not use Spiritual care concerns: No Exam Const: General: alert Nutritional Appearance: thin Orientation/consciousness: patient oriented x3 HENMT: Head: normocephalic and atraumatic Mouth: Yes Normal oral and palatal mucosa present, Yes lip normal and Yes oropharynx normal Throat: posterior oropharynx normal Eyes: Pupils: Equal, round and reactive pupils present EOM: EOMs intact bilaterally Chest: Chest palpation & inspection: normal inspection of the chest Resp: Effort & Inspection: normal respiratory effort and no retractions Auscultation: clear to auscultation bilaterally Cardio: Rate: regular rate Rhythm: regular rhythm Heart sounds: no murmurs GI: GI Palp: Yes Soft to palpation, No Tenderness to palpation present (GI) and No Guarding due to palpation present (GI) Auscultation: normal bowel sounds : General: Yes CVA tenderness on the left (mild) Back/Spine/Pelvis: Other: severe kyphosis and scoliosis Skin: General skin exam: normal color Neuro: General: patient oriented x3, moves all extremities and CN's II-XI intact bilaterally Course Reevaluation(s) Reevaluation #1: Patient reports pain is better . I discussed she will be admitted for stent placement, IV antibiotics and IV hydration. She is agreeable to admission. She has leukocytosis and low grade fever. On review of records, her urine culture was positive Date: 07/14/21 Time: 00:43 Consultations Consultation #1: I Discussed case with Dr. Metzger of urology. He recommends patient be admitted to hospitalist service due to fever and leukocytosis. He recommends given rocephin and make patient NPO. Patient will need to get stent placed later in day. Date: 07/14/21 Time: 00:42 Vital Signs Vital signs: Vital Signs Temperature 98.6 F 07/13/21 17:12 Pulse Rate 80 07/13/21 1
[2021-07-13 22:53] VITALS: BP 139/79; PULSE 88; RESP 18; O2SAT 100
[2021-07-13 23:08] VITALS: TEMP 37.8
[2021-07-13 23:22] LABS: Basophils Percent Auto 0.3 % (0.2-1.2); Eosinophils Absolute Auto 0.1 K/mm3 (0-0.3); Eosinophils Percent Auto 0.3 % (0-4.4); Hematocrit 37.5 % (37.0-47.0); Hemoglobin 12.7 g/dL (12.0-15.0); Immature Granulocyte Absolute 0.06 K/mm3 (0.00-0.031); Immature Granulocyte Percent A 0.4 % (0-0.5); Lymphocytes Absolute Auto 1.18 K/mm3 (0.9-3.2); Lymphocytes Percent Auto 7.8 % (18.3-44.2); Mean Corpuscular HGB Conc 33.9 g/dl (32-36); Mean Corpuscular Hemoglobin 34.3 pg (26-34); Mean Corpuscular Volume 101.4 fl (80-100); Monocytes Absolute Auto 1.5 K/mm3 (0.1-0.6); Neutrophils Absolute Auto 12.3 K/mm3 (1.3-6.7); Neutrophils Percent Auto 81.2 % (45.5-73.1); Platelet Count Result 307 k/mm3 (150-375); Red Cell Distribution Width 12.8 % (11.5-14.5); White Blood Count 15.2 K/mm3 (4.5-10.0)
[2021-07-13 23:48] LABS: Add Urine Microscopic? YES; Appearance Urine Clear (Clear); Bilirubin Urine Negative (Negative); Blood Urine 2+ (Negative); Color Urine Straw (Yellow); Glucose Urine UA Negative (Negative); Ketones Urine Trace mg/dL (Negative); Leukocyte Esterase Ur Negative LEU/UL (Negative); Mucus Urine Rare /lpf; Nitrate Urine Negative (Negative); Protein Urine Negative (Negative); RBC Urine 0-2 /hpf (0-2); Specific Grav Ur 1.006 (1.001-1.035); Squamous Epithelial Cell Urine Rare /hpf (Few); Urobilinogen Urine Negative mg/dL (<2.0); WBC Urine 0-3 /hpf
[2021-07-13] MEDS: oxyCODONE/ACETAMINOPHEN (*CRX) 5-325 MG TABLET 1 TABLET PO (23:50)
[2021-07-13] MEDS: ONDANSETRON HCL ODT 4 MG TABLET PO (23:50)
[2021-07-13 23:51] LABS: Alanine Aminotransferase 24 U/L (4-35); Albumin Level 4.2 g/dL (3.5-5.1); Alkaline Phosphatase 92 U/L (38-126); Anion Gap 7 mmol/L (8-16); Aspartate Amino Transferase 36 U/L (14-36); Bilirubin,Total 2.4 mg/dL (0.2-1.3); Blood Urea Nitrogen 18 mg/dL (7-17); Calcium 9.7 mg/dL (8.4-10.2); Carbon Dioxide 28 mmol/L (22-30); Chloride 95 mmol/L (98-107); Estimated CRCL calculation 33 ml/min; Estimated Glomerular Filt Rate 45; Glucose 101 mg/dL (65-110); Potassium 4.4 mmol/L (3.4-5.0); Sodium 130 mmol/L (137-145)
[2021-07-14] VITALS (14 sets, daily range): BP systolic 118–153; BP diastolic 50–74; PULSE 62–85; RESP 12–18; TEMP 35.8–36.8; O2SAT 97–100; BMI 19.1
[2021-07-14] MEDS: SODIUM CHLORIDE 0.9% IV 1,000 ML 999 ML IV CONT (02:36)
--- NOTE | 2021-07-14 03:15 | ADMGEN ---
This patient, Maricruz Starkey, was admitted to Medical Room 345-01. Patient/family oriented to hospital policies and general routines including ID bracelet, bed and alarms, visiting hours, pain management, procedures, bathroom and other care routines, personal items, smoking policy, room service/diet, and visiting hours. Information on how to activate the Rapid Response Team has been discussed. Patient/Family are encouraged to report perceived risks to care and to ask questions if they do not understand what they are told or what they should do.
[2021-07-14] MEDS: SODIUM CHLORIDE 0.9% IV 1,000 ML 125 ML IV CONT (03:41)
[2021-07-14] MEDS: ONDANSETRON INJ 4 MG/2 ML VIAL IV PUSH ×2 (03:50→07:52)
[2021-07-14] MEDS: MORPHINE SULFATE (*CRX) 2 MG/ML INJ IV PUSH ×2 (03:50→07:49)
--- NOTE | 2021-07-14 07:58 | WPDANESEPPF ---
Anes - Initial Pre Proc Eval Date/Time: 07/14/21 07:58 Pre Op Diagnosis: Obstructing L proximal ureteral stone, leukocytosi Patient Data Age: 65 Gender: F Height: 1.6 m Weight: 49 kg Last Vital Signs Temp 36.6 C 07/14/21 05:04 Pulse 77 07/14/21 05:04 Resp 16 07/14/21 05:04 BP 118/50 L 07/14/21 05:04 Pulse Ox 98 07/14/21 05:04 Allergies Allergy/AdvReac Type Severity Reaction Status Date / Time codeine AdvReac Severe Nausea Verified 07/13/21 22:56 Sulfa (Sulfonamide AdvReac Severe Hives Verified 07/13/21 22:56 Antibiotics) Home Medications Medication Instructions Recorded Confirmed Type famotidine [Pepcid] 10 mg PO BID 11/17/20 07/14/21 History propranolol 120 mg PO HS 11/17/20 07/14/21 History acetaminophen [Tylenol Ex Str 500 mg PO Q6H PRN 07/14/21 07/14/21 History Rapid Release] Laboratory Tests 07/13/21 07/13/21 07/13/21 22:58 23:06 23:06 WBC 15.2 K/mm3 H K/mm3 (4.5-10.0) RBC 3.70 M/mm3 L M/mm3 (4.2-5.4) Hgb 12.7 g/dL g/dL (12.0-15.0) Hct 37.5 % % (37.0-47.0) MCV 101.4 fl H fl (80-100) MCH 34.3 pg H pg (26-34) MCHC 33.9 g/dl g/dl (32-36) RDW 12.8 % % (11.5-14.5) Plt Count 307 k/mm3 k/mm3 (150-375) MPV 9.0 fl fl (7.4-10.4) Immature Gran % (Auto) 0.4 % % (0-0.5) Neut % (Auto) 81.2 % H % (45.5-73.1) Lymph % (Auto) 7.8 % L % (18.3-44.2) [place] % (Auto) 10.0 % H % (2.6-8.5) Eos % (Auto) 0.3 % % (0-4.4) Baso % (Auto) 0.3 % % (0.2-1.2) Lymph # (Auto) 1.18 K/mm3 K/mm3 (0.9-3.2) [place] # (Auto) 1.5 K/mm3 H K/mm3 (0.1-0.6) Eos # (Auto) 0.1 K/mm3 K/mm3 (0-0.3) Baso # (Auto) 0.0 K/mm3 K/mm3 (0.0-0.1) Abs Immat Gran (auto) 0.06 K/mm3 H K/mm3 (0.00-0.031) Absolute Neuts (auto) 12.3 K/mm3 H K/mm3 (1.3-6.7) Absolute Nucleated RBC 0.0 K/mm3 K/mm3 (0.0-0.012) Nucleated RBC % 0.0 % % (0.0-0.2) Sodium 130 mmol/L L mmol/L (137-145) Potassium 4.4 mmol/L mmol/L (3.4-5.0) Chloride 95 mmol/L L mmol/L (98-107) Carbon Dioxide 28 mmol/L mmol/L (22-30) Anion Gap 7 mmol/L L mmol/L (8-16) BUN 18 mg/dL H mg/dL (7-17) Creatinine 1.20 mg/dL H mg/dL (0.7-1.0) Estim Creat Clear Calc 33 ml/min ml/min Estimated GFR 45 L (59 - ) Glucose 101 mg/dL mg/dL (65-110) Calcium 9.7 mg/dL mg/dL (8.4-10.2) Total Bilirubin 2.4 mg/dL H mg/dL (0.2-1.3) AST 36 U/L U/L (14-36) ALT 24 U/L U/L (4-35) Alkaline Phosphatase 92 U/L U/L (38-126) Total Protein 7.0 g/dL g/dL (6.3-8.2) Albumin 4.2 g/dL g/dL (3.5-5.1) Urine Color Straw (Yellow) Urine Appearance Clear (Clear) Urine pH 6.0 (5.0-9.0) Ur Specific [place] 1.006 (1.001-1.035) Urine Protein Negative mg/dL mg/dL (Negative) Urine Glucose (UA) Negative mg/dL mg/dL (Negative) Urine Ketones Trace mg/dL mg/dL (Negative) Ur Blood (Man) 2+ H (Negative) Urine Nitrate Negative (Negative) Urine Bilirubin Negative (Negative) Urine Urobilinogen Negative mg/dL mg/dL (<2.0) Leukocyte Esterase Rfl Negative KONSTANTIN/UL KONSTANTIN/UL (Negative) Urine RBC 0-2 /hpf /hpf (0-2) Urine WBC 0-3 /hpf /hpf Ur Squamous Epith Cells Rare /hpf /hpf (Few) Urine Mucus Rare /lpf /lpf Patient hx anesthesia problems: none Family hx anesthesia problems: none Results Review: All pre-operative results and documents have been reviewed as part of the pre-operative evaluation. [facility] Past Medical History Medical History (Updated 07/14/21 @ 01:17 by Rebecca Morley
--- NOTE | 2021-07-14 09:27 | WPDURCON ---
Assessment and Plan Assessment and plan (1) Calculus of proximal left ureter: Code(s): N20.1 - Calculus of ureter Status: Acute Assessment and Plan: left proximal ureteral stone s/p unsuccessful ESWL - discussed left stent placement, technique, risks, benefits, and rationale-- discussed why in her situation (leukocytosis, DEE) a URS/LL would be deferred for a few weeks until cultures finalize and inflammation resolves; she agrees to proceed with left ureteral stent placement today (2) Leukocytosis: Qualifiers: Leukocytosis type: unspecified Qualified Code(s): D72.829 - Elevated white blood cell count, unspecified Code(s): D72.829 - Elevated white blood cell count, unspecified Status: Acute (3) Obstruction of ureteropelvic junction (UPJ) due to stone: Code(s): N20.1 - Calculus of ureter Status: Acute Urology Consult Note HPI Date Seen: 07/14/21 Requesting Physician: Sylvie Virk PA-C Primary Care Provider: Dariana Rodriguez, PA Consult Narrative Narrative: Maricruz Starkey is a 65 year old female who was seen about two weeks ago with left ureteral stone. She had ESWL. Culture was E. coli. She re presented last night for persistent left flank pain. KUB clearly shows stone in the left proximal ureter. WBC elevated, neutrophil predominant. Creat elevated slightly to 1.2. UA appears okay. Vitals stable. Stone does not appear appreciably different from CT on 07/01. Review of Systems Review of Systems: All systems reviewed & are unremarkable except as noted in HPI and below PMFSH Past Medical History Medical History Bilateral kidney stones Migraine Scoliosis Surgical History Surgical History History of tonsillectomy Family History Family History Mother Cerebrovascular accident Sibling Cerebrovascular accident Father Dementia Social History Social History Smoking status: Never smoker Alcohol intake: never Substance use: never Substance use type: does not use Spiritual care concerns: No Meds Home Medications and Allergies Home Medications Medication Instructions Recorded Confirmed Type famotidine [Pepcid] 10 mg PO BID 11/17/20 07/14/21 History propranolol 120 mg PO HS 11/17/20 07/14/21 History acetaminophen [Tylenol Ex Str 500 mg PO Q6H PRN 07/14/21 07/14/21 History Rapid Release] Allergies Allergy/AdvReac Type Severity Reaction Status Date / Time codeine AdvReac Severe Nausea Verified 07/13/21 22:56 Sulfa (Sulfonamide AdvReac Severe Hives Verified 07/13/21 22:56 Antibiotics) Vital Signs Vital Signs - 24 hr 07/13/21 17:12 07/13/21 21:46 07/13/21 22:53 Temperature 37.0 C Pulse Rate 80 73 88 Respiratory Rate 18 18 Blood Pressure 152/80 H 138/66 139/79 Pulse Oximetry 100 100 100 07/13/21 23:08 07/14/21 01:37 07/14/21 03:05 Temperature 37.8 C H 36.7 C Pulse Rate 72 74 Respiratory Rate 18 16 Blood Pressure 126/70 138/65 Pulse Oximetry 100 100 07/14/21 03:15 07/14/21 05:04 07/14/21 08:45 Temperature 35.8 C L 36.6 C 36.0 C L Pulse Rate 72 77 74 Respiratory Rate 18 16 16 Blood Pressure 138/54 L 118/50 L 153/66 H Pulse Oximetry 100 98 100 Exam Narrative: no distress but clearly a bit uncomfortable, a&o, eomi, unlabored resp, abd soft Results Labs CBC & Chem 7: 07/13/21 23:06 07/13/21 23:06 Labs: Short CBC 07/13/21 Range/Units 23:06 WBC 15.2 H (4.5-10.0) K/mm3 Hgb 12.7 (12.0-15.0) g/dL Hct 37.5 (37.0-47.0) % Plt Count 307 (150-375) k/mm3 [facility] 07/13/21 23:06 Sodium 130 L Potassium 4.4 Chloride 95 L Carbon Dioxide 28 BUN 18 H Creatinine 1.20 H Glucose 101 Calcium 9.7 Li
--- NOTE | 2021-07-14 10:14 | WPDHPUPDATE1 ---
History and Physical Update Update Date/Time: 07/14/21 10:14 History and Physical has been reviewed, including an updated exam of the patient. There are NO changes in the patient's condition from my consult note 20 minutes ago. Risks, benefits, and alternatives have been discussed and questions answered. Patient agrees to proceed with procedure.
--- NOTE | 2021-07-14 11:23 | W.PM.PROC2 ---
Procedure Note - Detailed Date of Procedure 07/14/21 Pre-op Diagnosis Obstructing L proximal ureteral stone, leukocytosi Post-op Diagnosis same Procedure Performed Cystoscopy, left retrograde pyelogram, left ureteral stent placement Surgeon Prem Metzger MD Anesthesia MAC Indications left obstructing ureteral calculus with leukocytosis Findings bladder did not appear obviously infected, flocculent material from left kidney upon dislodging of the stone Description of Procedure the patient is brought back to the operating room. She was prepped, draped, padded per protocol. She was on therapeutic ceftriaxone. Rigid cystoscope was placed in the bladder. There were no mucosal abnormalities. Left ureteral orifice was identified. A guidewire was advanced under fluoroscopy up into the left renal pelvis. The stone was easily seen on fluoroscopy. Once the stone was dislodged by the wire, cloudy material began pouring out of collecting system. Not pus per se but she was clearly obstructed. fluid was sent from the scope after return of this material into the bladder for culture. Open-ended ureteral catheter was advanced to the mid ureter over the wire and the wire was removed. Retrograde pyelogram was performed showing minimal hydronephrosis. Wire was replaced. A 6 [place] variable length stent was advanced with good curl noted in the renal pelvis and a good curl visualized in the bladder. The bladder was drained and the patient sent to recovery. Implants Six Sur[place]amese variable length stent Urine Output 150 Pathology yes Complications No immediate complications Condition stable Disposition PACU
--- NOTE | 2021-07-14 11:27 | WPDUROPN2 ---
Progress Note: A&P Additional Plan Ureteral stent placed. If she does well this afternoon with normal vitals and is feeling okay, she should be able to discharge later on today or tomorrow with 2 weeks of culture specific antibiotics based on the urine culture from 07/01/2021. Dr. Zambrano will arrange for definitive stone treatment over the next few weeks. Subjective Subjective Date/Time Seen: 07/14/21 11:27 Objective Data Vital Signs Vital Signs: Vital Signs - 24 hr 07/13/21 17:12 07/13/21 21:46 07/13/21 22:53 Temperature 37.0 C Pulse Rate 80 73 88 Respiratory Rate 18 18 Blood Pressure 152/80 H 138/66 139/79 Pulse Oximetry 100 100 100 07/13/21 23:08 07/14/21 01:37 07/14/21 03:05 Temperature 37.8 C H 36.7 C Pulse Rate 72 74 Respiratory Rate 18 16 Blood Pressure 126/70 138/65 Pulse Oximetry 100 100 07/14/21 03:15 07/14/21 05:04 07/14/21 08:45 Temperature 35.8 C L 36.6 C 36.0 C L Pulse Rate 72 77 74 Respiratory Rate 18 16 16 Blood Pressure 138/54 L 118/50 L 153/66 H Pulse Oximetry 100 98 100 Intake/Output Intake/Output: Intake & Output 07/11/21 07/12/21 07/13/21 07/14/21 23:59 23:59 23:59 23:59 Intake Total 1050 Output Total 300 Balance 750 Meds/Results Medications: Active Medications Generic Name Dose Route Start Last Admin Trade Name Freq PRN Reason Stop Dose Admin Fentanyl Citrate 25 mcg 07/14/21 08:01 Fentanyl Citrate Inj (*Crx) 100 Mcg/2 Ml Vial IV PUSH Q2M PRN Pain Acetaminophen 1,000 mg in 100 mls @ 400 mls/hr 07/14/21 00:50 Ofirmev 1,000 Mg Ivpb IVPB 07/15/21 00:49 Q6H PRN Mild Pain (1-3) or Fever Sodium Chloride 1,000 mls @ 125 mls/hr 07/14/21 00:50 07/14/21 03:41 Normal Saline Iv IV CONT 125 mls/hr .Q8H BRENDAN Administration Ceftriaxone Sodium/Dextrose 1 gm in 50 mls @ 100 mls/hr 07/14/21 21:00 Rocephin 1 Gm/D5w 50 Ml IVPB Q24H BRENDAN Lactated Ringer's 1,000 mls @ 30 mls/hr 07/14/21 08:05 Lr - Lactated Ringers Iv IV CONT .Q24H BRENDAN Lactated Ringer's 1,000 mls @ 30 mls/hr 07/14/21 08:05 Lr - Lactated Ringers Iv IV CONT .Q24H BRENDAN Morphine Sulfate 2 mg 07/14/21 02:24 07/14/21 07:49 Morphine Sulfate (*Crx) 2 Mg/Ml Inj IV PUSH 2 mg Q4H PRN Administration Pain Rated 7-10 Ondansetron HCl 4 mg 07/14/21 00:50 07/14/21 07:52 Ondansetron Inj 4 Mg/2 Ml Vial IV PUSH 4 mg Q4H PRN Administration Nausea Ondansetron HCl 4 mg 07/14/21 08:01 Ondansetron Inj 4 Mg/2 Ml Vial IV PUSH ONCE PRN Nausea Oxycodone HCl 5 mg 07/14/21 08:01 Oxycodone Hcl (*Crx) 5 Mg Tab Ir PO ONCE PRN Pain Radiology Results: ITS Impressions Abdomen X-Ray 07/13/21 22:43 IMPRESSION: 1. Unchanged 4 mm stone in proximal left ureter. Labs Labs: Laboratory Results - last 24 hr 07/13/21 07/13/21 07/13/21 22:58 23:06 23:06 WBC 15.2 H RBC 3.70 L Hgb 12.7 Hct 37.5 MCV 101.4 H MCH 34.3 H MCHC 33.9 RDW 12.8 Plt Count 307 MPV 9.0 Immature Gran % (Auto) 0.4 Neut % (Auto) 81.2 H Lymph % (Auto) 7.8 L [place] % (Auto) 10.0 H Eos % (Auto) 0.3 Baso % (Auto) 0.3 Lymph # (Auto) 1.18 [place] # (Auto) 1.5 H Eos # (Auto) 0.1 Baso # (Auto) 0.0 Abs Immat Gran (auto) 0.06 H Absolute Neuts (auto) 12.3 H Absolute Nucleated RBC 0.0 Nucleated RBC % 0.0 Sodium 130 L Potassium 4.4 Chloride 95 L Carbon Dioxide 28 Anion Gap 7 L BUN 18 H Creatinine 1.20 H Estim Creat Clear Calc 33 Estimated GFR 45 L Glucose 101 Calcium 9.7 Total Bilirubin 2.4 H AST 36 ALT 24 Alkaline Phosphatase 92 Total Protein 7.0 Albumin 4.2 Urine Color Straw Urine Appearance Clear Urine pH 6.0 Ur Specific [place] 1.006 Urine Protein Negative Urine Glucose (UA) Negative Urine Ketones Trace Ur Blood (Man) 2+ H Urine Nitrate Negative
[2021-07-14] MEDS: LACTATED RINGERS 1,000 ML 30 ML IV CONT (11:30)
--- NOTE | 2021-07-14 16:30 | PM.IMHP ---
H&P: HPI History of Present Illness Date/Time: 07/14/21 16:30 Pt is a 65 yo female w/ hx of nephrolithiasis who presented to the emergency room yesterday for evaluation of left flank pain and was subsequently admitted for a 4 mm left proximal ureteral stone and UTI. Patient states she had lithotripsy performed approximately 2 weeks ago, and has had intermittent left flank pain since that time. She states she was seen earlier this week by Urology with an x-ray and was found to have a 4 mm left proximal ureteral stone. She had told them that she wanted to try and pass it at home. Pain increased yesterday prompting her to come to the emergency room where she was found to have a low grade fever. She has occasional nausea but denies fever, chills, vomiting. She does admit to some mild dysuria and occasional left lower quadrant abdominal pain. She was taken to the OR this morning where she had a ureteral stent placed without complications. This afternoon she is feeling much better, and states her pain has mostly gone away. Still having mild dysuria, but is urinating without difficulty since the surgery. Of note, her urine sample from the office this week did grow E coli so she was started on Rocephin from the emergency room. Chief Complaint: L flank pain Review of Systems Review of Systems: General: + fevers, +chills Eyes: Denies vision changes or eye pain ENT: Denies nasal congestion or sore throat Respiratory: Denies cough or shortness of breath Cardiovascular: Denies chest pain, palpitations, or lower extremity edema Gastrointestinal: + abdominal pain, no vomiting, + diarrhea, +constipation (chronic hx of IBS) Genitourinary: + dysuria Musculoskeletal: + back pain Neurological: + headache, denies paraesthesias or motor weakness Integumentary: Denies rash or other skin lesions Psychiatric: Denies SI/[facility] Past Medical History Medical History (Updated 07/14/21 @ 16:48 by Sylvie Virk PA-C) Bilateral kidney stones IBS (irritable bowel syndrome) Migraine Scoliosis Surgical History Surgical History (Updated 07/14/21 @ 16:37 by Sylvie Virk PA-C) History of lithotripsy History of tonsillectomy Family History Family History Mother Cerebrovascular accident Sibling Cerebrovascular accident Father Dementia Social History Social History (Updated 07/14/21 @ 16:37 by Sylvie Virk PA-C) Smoking status: Never smoker Alcohol intake: never Substance use: never Substance use type: does not use Living arrangements: with family Additional living arrangements comments: Lives at home with and daughter Occupation/Education: retired Spiritual care concerns: No Meds Home Medications and Allergies Home Medications Medication Instructions Recorded Confirmed Type famotidine [Pepcid] 10 mg PO BID 11/17/20 07/14/21 History propranolol 120 mg PO HS 11/17/20 07/14/21 History acetaminophen [Tylenol Ex Str 500 mg PO Q6H PRN 07/14/21 07/14/21 History Rapid Release] Allergies Allergy/AdvReac Type Severity Reaction Status Date / Time codeine AdvReac Severe Nausea Verified 07/13/21 22:56 Sulfa (Sulfonamide AdvReac Severe Hives Verified 07/13/21 22:56 Antibiotics) Vital Signs Vital Signs - 24 hr 07/13/21 17:12 07/13/21 21:46 07/13/21 22:53 Temperature 98.6 F Pulse Rate 80 73 88 Respiratory Rate 18 18 Blood Pressure 152/80 H 138/66 139/79 Pulse Oximetry 100 100 100 07/13/21 23:08 07/14/21 01:37 07/14/21 03:05 Temperature 100.0 F H 98.1 F Pulse Rate 72 74 Respiratory Rate 18 16 Blood Pressure 126/70 138/65 Pulse Oximetry 100 100 07/14/21 03:15 07/14/21 05:04 07/14/21 08:45 Temperature 96.5 F L 97.8 F 96.8 F L Pulse Rate 72 77 74 Respiratory Rate 18 16 16 Blood Pressure 138/54 L 118/50 L 153/66 H Pulse Oximetry 100 98 100 07/14/21 11:23 07/14/21 11:38 07/14/21 11:52 Te
[2021-07-14] MEDS: FAMOTIDINE 10 MG TABLET PO (18:32)
[2021-07-14] MEDS: PROPRANOLOL HCL 60 MG CAPSULE CR 120 MG PO (21:45)
[2021-07-14] MEDS: ACETAMINOPHEN 325 MG TABLET 650 MG PO (22:17)
[2021-07-15 06:00] VITALS: BP 135/68; PULSE 64; RESP 14; TEMP 36.5; O2SAT 100
[2021-07-15 06:48] LABS: Basophils Percent Auto 0.6 % (0.2-1.2); Eosinophils Absolute Auto 0.1 K/mm3 (0-0.3); Eosinophils Percent Auto 1.3 % (0-4.4); Hematocrit 31.3 % (37.0-47.0); Hemoglobin 10.5 g/dL (12.0-15.0); Immature Granulocyte Absolute 0.03 K/mm3 (0.00-0.031); Immature Granulocyte Percent A 0.4 % (0-0.5); Lymphocytes Absolute Auto 1.28 K/mm3 (0.9-3.2); Lymphocytes Percent Auto 19.1 % (18.3-44.2); Mean Corpuscular HGB Conc 33.5 g/dl (32-36); Mean Corpuscular Hemoglobin 33.8 pg (26-34); Mean Corpuscular Volume 100.6 fl (80-100); Mean Platelet Volume 9.3 fl (7.4-10.4); Monocytes Percent Auto 14.6 % (2.6-8.5); Neutrophils Absolute Auto 4.3 K/mm3 (1.3-6.7); Platelet Count Result 262 k/mm3 (150-375); Red Blood Count 3.11 M/mm3 (4.2-5.4); Red Cell Distribution Width 12.8 % (11.5-14.5); White Blood Count 6.7 K/mm3 (4.5-10.0)
[2021-07-15 06:49] LABS: Anion Gap 2 mmol/L (8-16); Blood Urea Nitrogen 14 mg/dL (7-17); Calcium 8.9 mg/dL (8.4-10.2); Carbon Dioxide 29 mmol/L (22-30); Chloride 104 mmol/L (98-107); Estimated CRCL calculation 47 ml/min; Estimated Glomerular Filt Rate > 60; Glucose 93 mg/dL (65-110); Potassium 4.1 mmol/L (3.4-5.0); Sodium 135 mmol/L (137-145)
--- NOTE | 2021-07-15 07:30 | P.PNAN_ITS ---
Anes - Prog Note Post-Op Date/Time: 07/15/21 07:30 Cardiovascular status: normal Respiratory status: normal Airway patency: baseline Mental status: baseline Post-Op hydration status: normal Vital Signs: Last Vital Signs Temp 36.5 C 07/15/21 06:00 Pulse 64 07/15/21 06:00 Resp 14 07/15/21 06:00 BP 135/68 07/15/21 06:00 Pulse Ox 100 07/15/21 06:00 Pain Score (VAS): 2 I/O: Intake & Output 07/14/21 07/14/21 07/15/21 15:59 23:59 07:59 Intake Total 250 1050 340 Output Total 1050 1700 Balance -800 1050 -1360 Laboratory Tests 07/15/21 06:14 07/15/21 06:14 07/15/21 07/15/21 06:14 06:14 WBC 6.7 RBC 3.11 L Hgb 10.5 L Hct 31.3 L MCV 100.6 H MCH 33.8 MCHC 33.5 RDW 12.8 Plt Count 262 MPV 9.3 Immature Gran % (Auto) 0.4 Neut % (Auto) 64.0 Lymph % (Auto) 19.1 [place] % (Auto) 14.6 H Eos % (Auto) 1.3 Baso % (Auto) 0.6 Lymph # (Auto) 1.28 [place] # (Auto) 1.0 H Eos # (Auto) 0.1 Baso # (Auto) 0.0 Abs Immat Gran (auto) 0.03 Absolute Neuts (auto) 4.3 Absolute Nucleated RBC 0.0 Nucleated RBC % 0.0 Sodium 135 L Potassium 4.1 Chloride 104 Carbon Dioxide 29 Anion Gap 2 L BUN 14 Creatinine 0.80 Estim Creat Clear Calc 47 Estimated GFR > 60 Glucose 93 Calcium 8.9 Microbiology 07/14/21 02:05 Blood Blood Culture - Preliminary 07/14/21 02:34 Blood Blood Culture - Preliminary Post-procedural complaints: none Patient Feedback: Patient satisfied with anesthetic care.
[2021-07-15] MEDS: FAMOTIDINE 10 MG TABLET PO (08:11)
--- NOTE | 2021-07-15 11:54 | PM.DS ---
DS: Admitting Diagnosis Discharge Date 07/15/21 Admitting Diagnosis nephrolithiasis DS: Discharge Diagnosis Discharge Diagnosis (1) Calculus of proximal left ureter: Code(s): N20.1 - Calculus of ureter Status: Acute Assessment and Plan: -XR w/ 4 mm stone proximal left ureter -Urology consulted -Taken to OR and had L sided ureteral stent placed without complications -Pain has resolved -Urine sample 07/01 grew E. Coli susceptible to Rocephin which was given while inpatient -Per urology she is stable for discharge at this time, she will be on 2 weeks total of abx therapy based on culture from 07/01 -She is to follow up with Dr. Zambrano outpatient in the next couple of weeks for definitive stone treatment -Leukocytosis and low grade fever on arrival have resolved. She is well appearing in no distress and stable for discharge at this time. (2) UTI (urinary tract infection): Code(s): N39.0 - Urinary tract infection, site not specified Status: Acute Assessment and Plan: -See above (3) Eye irritation: Code(s): H57.89 - Other specified disorders of eye and adnexa Status: Acute Assessment and Plan: -thinks she scratched her eye overnight -will send w/ erythromycin ointment and have her see optho if no improvement -no vision changes or red flag symptoms DS: Summary Hospital Course Reason for hospitalization: 65 yo female w/ hx of nephrolithiasis who presented to the emergency room yesterday for evaluation of left flank pain and was subsequently admitted for a 4 mm left proximal ureteral stone and UTI. She is s/p L ureteral stent placement. Please see HPI for further details. Hospital Course: Please see above for details of hospital course. Status at Discharge Cognitive/behavioral status at discharge: stable Functional status at discharge: independent ambulation Overall status at discharge: patient is progressing back to baseline Time Spent with Patient Time attestation: Total time spent providing and/or coordinating discharge services: 32 Time spent: Greater than 30 minutes Exam Narrative: General: No acute distress, non toxic appearing, thin stature Eyes: PERRL, no scleral icterus HEENT: NCAT, external ears normal, MMM Respiratory: No respiratory distress, Lungs CTA bilaterally, no wheezing Cardiovascular: RRR, no murmur Abdominal: Soft, nontender, non distended, no rebound or guarding, no CVA tenderness Musculoskeletal: Moves all 4 extremities, no edema Neurological: A/Ox3, speech normal, no facial asymmetry Skin: Warm, dry, no rashes Psychiatric: Normal affect, normal mood DS: Data Data Completed and Pending Labs on day of discharge: Labs from last 24 hours 07/15/21 07/15/21 06:14 06:14 WBC 6.7 RBC 3.11 L Hgb 10.5 L Hct 31.3 L MCV 100.6 H MCH 33.8 MCHC 33.5 RDW 12.8 Plt Count 262 MPV 9.3 Immature Gran % (Auto) 0.4 Neut % (Auto) 64.0 Lymph % (Auto) 19.1 [place] % (Auto) 14.6 H Eos % (Auto) 1.3 Baso % (Auto) 0.6 Lymph # (Auto) 1.28 [place] # (Auto) 1.0 H Eos # (Auto) 0.1 Baso # (Auto) 0.0 Abs Immat Gran (auto) 0.03 Absolute Neuts (auto) 4.3 Absolute Nucleated RBC 0.0 Nucleated RBC % 0.0 Sodium 135 L Potassium 4.1 Chloride 104 Carbon Dioxide 29 Anion Gap 2 L BUN 14 Creatinine 0.80 Estim Creat Clear Calc 47 Estimated GFR > 60 Glucose 93 Calcium 8.9 Preliminary micro results at discharge 07/14/21 02:05 Blood Culture - Preliminary Blood 07/14/21 02:34 Blood Culture - Preliminary Blood Discharge Plan Discharge Attending physician on discharge: Harshal Blank Consulting providers: Prem Metzger Discharging Clinician: Sylvie Virk Anticipated Discharge Date/Time: 07/15/21 12:03 Patient Disposition: Home, Self-Care Activity: may shower Diet: as tolerated Discharge Instructions: Please take
== END 2021-07-15 13:25 | disposition home or self-care (01) ==
LOC: ANHED 07-14 01:17 → ANH3MED 07-14 02:19
PROVIDERS: Physician Assistant; Urology; Admitting Provider Internal Medicine; Emergency Provider General Practice; PCP Physician Assistant; Visit Provider Internal Medicine
PROC: (CPT 52352; principal; 2021-07-14 11:30)
DX: N20.1 Calculus of ureter (principal); N39.0 Urinary tract infection, site not specified; B96.20 Unspecified Escherichia coli [E. coli] as the cause of diseases classified elsewhere; H57.89 Other specified disorders of eye and adnexa; D72.829 Elevated white blood cell count, unspecified; R30.0 Dysuria; Z87.442 Personal history of urinary calculi
CPT/HCPCS: 52332; 36415; 74018; 74420; 80048; 80053; 81001; 85025; 87040; 87086; 87088; 96361; 96365; 96366; 96375; 96376; 99285; A9270; C1758; C1769; C2617; G0378; J0696; J1885; J2270; J2405; J2704; J3010; J7030; J7120; Q9966

== ENCOUNTER → 2021-10-30 15:12 | Outpatient (CLI) | payer OTHER, SELFPAY ==
--- NOTE | ~2021-10-30 | XR_ITS ---
EXAMINATION: XR hip RT min 2V DATE: 10/30/2021 16:06 INDICATION: Right hip pain TECHNIQUE: Two views of right hip were obtained. COMPARISON: None. FINDINGS: Bone alignment is normal. There is no fracture. Phleboliths are noted in the pelvis. The so ft tissues are otherwise unremarkable. IMPRESSION: 1. Unremarkable right hip radiograph. Reviewed, dictated and finalized at location B.
--- NOTE | ~2021-10-30 | XR_ITS ---
EXAMINATION: XR lumbar spine 2-3V DATE: 10/30/2021 16:06 INDICATION: Low back pain TECHNIQUE: Anteroposterior and lateral views of the lumbar spine, and cone-down lateral view of the l umbosacral junction were obtained. COMPARISON: None. FINDINGS: There are 34 degrees of lumbar levoscoliosis. No fracture is identified. The vertebral body heights are maintained. There is severe asymmetric loss of intervertebral disc space on the right fr om L1-2 through L3-4. There is severe asymmetric loss of intervertebral disc space height on the left at L4-5. Small degenerative osteophytes project from the anterior endplates of multiple vertebral saul dies. Bone alignment appears normal. IMPRESSION: 1. Lumbar levoscoliosis and severe spondylosis without acute findings identified. Reviewed, dictated and finalized at location B. IMPRESSION: 1. Lumbar levoscoliosis and severe spondylosis without acute findings identifie d.
== END ==
PROVIDERS: PCP Physician Assistant; Visit Provider Physician Assistant
DX: M47.816 Spondylosis without myelopathy or radiculopathy, lumbar region (principal); M54.41 Lumbago with sciatica, right side; M41.9 Scoliosis, unspecified
CPT/HCPCS: 72100; 73502

== ENCOUNTER → 2022-01-09 12:52 | Outpatient (CLI) | payer OTHER, SELFPAY ==
--- NOTE | ~2022-01-09 | XR_ITS ---
EXAMINATION: XR abdomen/kub 1V INDICATION: Ureteral stone TECHNIQUE: Supine views of the abdomen were obtained on 2 radiographs. COMPARISON: 07/13/2021 FINDINGS: No urolithiasis is identified. There are multiple stable phleboliths in the pelvis. A moder ate volume of colonic stool is present. Lumbar levoscoliosis is noted. IMPRESSION: 1. No urolithiasis identified. Reviewed, dictated and finalized at location F.
--- NOTE | ~2022-01-09 | US_ITS ---
US retroperitoneal comp 01/09/2022 13:38 Procedure: Realtime transabdominal ultrasound of the kidneys and bladder. Indication: Ureteral stone. Comparison: KUB dated 07/13/2021 Findings: Renal echotexture is normal bilaterally without hydronephrosis, contour deforming mass or r enal calculus. The right kidney measures 8.6 cm and left kidney measures 9.6 cm. Bladder within norm al limits. Impression: 1: Unremarkable renal ultrasound. No stones, masses or hydronephrosis. Reviewed, dictated and finalized at location A. Impression: 1: Unremarkable renal ultrasound. No stones, masses or hydronephrosis.
== END ==
PROVIDERS: PCP Physician Assistant; Visit Provider Urology
DX: N20.1 Calculus of ureter (principal)
CPT/HCPCS: 74018; 76770

== ENCOUNTER 2022-05-31 14:40 | Emergency (ER) | payer OTHER, SELFPAY ==
--- NOTE | 2022-05-31 14:43 | ED.BACK ---
HPI - Back Pain/Injury General Chief Complaint: Wound/Laceration Stated Complaint: FALL/BACK RADIATING TO RIB PAIN Time Seen by Provider: 05/31/22 14:43 Source: patient Mode of arrival: ambulatory Limitations: no limitations History of Present Illness HPI Narrative: Mrs. Starkey is a 66-year-old female patient presenting to the clinic today with complaints of back/rib pain. She reports she fell on Friday when she was trying to step out of her garden and tripped over what possibly was the sidewalk or paper stone. She reports that her back twisted and she hit her head and knee on brick wall. Related Data Home Medications Medication Instructions Recorded Confirmed famotidine 20 mg tablet (Pepcid) 10 mg PO BID 11/17/20 05/31/22 acetaminophen 500 mg tablet 500 mg PO Q6H PRN Pain 07/14/21 05/31/22 meloxicam 7.5 mg tablet 7.5 mg PO PRN PRN Pain, Mild 05/31/22 05/31/22 ondansetron HCl 8 mg tablet 8 mg PO PRN PRN Nausea 05/31/22 05/31/22 propranolol 120 mg capsule,24 120 mg PO DAILY 05/31/22 05/31/22 hr,extended release Allergies Allergy/AdvReac Type Severity Reaction Status Date / Time codeine AdvReac Severe Nausea Verified 05/31/22 15:09 Sulfa (Sulfonamide AdvReac Severe Hives Verified 05/31/22 15:09 Antibiotics) Review of Systems Review of Systems: Pertinent positives per HPI. Patient denies any fever, chills, rash, headache, visual changes, dizziness, cough, runny nose, sore throat, shortness of breath, chest pain, palpitations, nausea, vomiting, diarrhea, constipation, abdominal pain, or any urinary issues. [facility] Past Medical History Medical History Bilateral kidney stones IBS (irritable bowel syndrome) Migraine Scoliosis Surgical History Surgical History History of lithotripsy History of tonsillectomy Family History Family History Mother Cerebrovascular accident Sibling Cerebrovascular accident Father Dementia Social History Social History Smoking status: Never smoker Alcohol intake: never Substance use: never Substance use type: does not use Additional living arrangements comments: Lives at home with and daughter Spiritual care concerns: No Comments At the time of my signature, I reviewed and agree with the nursing past medical, surgical, social, and family history. There is no relevant family history pertinent to the patient complaint. Exam Narrative: General: Well-developed, well nourished, in no apparent distress Head: Normocephalic, small contusion to the right scalp with mild abrasion Cardio: Regular rate and rhythm, s1 and s2 normal, no murmur appreciated. Resp: Clear to auscultation bilaterally, no rhonchi, rales, wheezing or rubs. Musculoskeletal: No deformity, tender with movement over the upper left and right back that radiates into the ribs, pain with twisting and raising arms above head, grossly normal range of motion, muscle strength strong and equal, peripheral pulse strong, no edema, no cyanosis, normal gait and station Course Course Emergency Course: Portions of this record may have been created with voice recognition software. Level of Care: Express Care Visit Vital Signs Vital signs: Vital Signs Temperature 37.7 C H 05/31/22 15:09 Pulse Rate 68 05/31/22 15:09 Respiratory Rate 16 05/31/22 15:09 Blood Pressure 163/83 H 05/31/22 15:09 Pulse Oximetry 100 05/31/22 15:09 Temperature 37.7 C H 05/31/22 15:12 Pulse Rate 68 05/31/22 15:12 Respiratory Rate 16 05/31/22 15:12 Blood Pressure 163/83 H 05/31/22 15:12 Pulse Oximetry 100 05/31/22 15:12 Vital signs reviewed MDM - Back Pain/Injury MDM Narrative Medical decision making narrative: At the time of visit patient
[2022-05-31 15:09] VITALS: BP 163/83; PULSE 68; RESP 16; TEMP 37.7; O2SAT 100
[2022-05-31 15:12] VITALS: BP 163/83; PULSE 68; RESP 16; TEMP 37.7; O2SAT 100
== END 2022-05-31 15:46 | disposition home or self-care (01) ==
PROVIDERS: Emergency Provider Nurse Practitioner Family; PCP Physician Assistant
DX: M62.830 Muscle spasm of back (principal); S00.03XA Contusion of scalp, initial encounter; W01.0XXA Fall on same level from slipping, tripping and stumbling without subsequent striking against object, initial encounter; M41.9 Scoliosis, unspecified
CPT/HCPCS: 99213; G0463

== ENCOUNTER → 2023-01-20 16:23 | Outpatient (CLI) | payer OTHER, SELFPAY ==
--- NOTE | ~2023-01-20 | XR_ITS ---
EXAMINATION: XR abdomen/kub 1V INDICATION: Left flank pain TECHNIQUE: Supine views of the abdomen were obtained on 2 radiographs. COMPARISON: 01/09/2022 FINDINGS: No definite urolithiasis is identified. Multiple stable phleboliths are again noted in the pelvis. The bowel gas pattern is normal. Lumbar levoscoliosis is noted. The visualized lung bases are clear. Healed bilateral rib fractures are noted. IMPRESSION: 1. No urolithiasis identified. If there is high clinical suspicion for urinary tract calculi, further evaluation with stone protocol CT is recommended. Reviewed, dictated and finalized at location A.
== END ==
PROVIDERS: PCP Physician Assistant; Visit Provider Urology
DX: N20.1 Calculus of ureter (principal)
CPT/HCPCS: 74018

== ENCOUNTER → 2023-01-22 09:16 | Outpatient (CLI) | payer OTHER, MEDICARE, SELFPAY ==
--- NOTE | ~2023-01-22 | US_ITS ---
EXAMINATION: US renal BI DATE: 01/23/2023 10:07 INDICATION: Left ureteral stone TECHNIQUE: Multiple grayscale and Doppler ultrasound images of the kidneys were obtained. COMPARISON: X-ray abdomen 01/20/2023; ultrasound retroperitoneum 01/09/2022. FINDINGS: The right kidney measures 9.1 x 3.5 x 4.3 cm. The left kidney measures 9.6 x 3.7 x 4.2 cm. The kidney s demonstrate normal parenchymal echogenicity. There is no hydronephrosis. The bladder is partially d ecompressed and therefore incompletely evaluated. IMPRESSION: Unremarkable renal sonogram findings. Reviewed, dictated and finalized at location K.
== END ==
PROVIDERS: PCP Urology; Visit Provider Urology
DX: N20.1 Calculus of ureter (principal)
CPT/HCPCS: 76775

== ENCOUNTER 2024-01-27 11:00 | Outpatient (CLI) | payer MEDICARE, SELFPAY ==
--- NOTE | ~2024-01-27 | XR_ITS ---
EXAM: XR abdomen/kub 1V DATE: 01/27/2024 11:18 HISTORY: Calculus of ureter . COMPARISON: 01/20/2023. FINDINGS: Clear lung bases. Normal bowel gas pattern. No organomegaly. Stable pelvic phleboliths. Jessy mbar scoliosis. Severe degenerative disc disease in the lumbar spine. Old healed pelvic and rib fract ures. IMPRESSION: No radiographic evidence of urolithiasis. Reviewed, dictated and finalized at location K.
== END 2024-01-27 11:01 ==
LOC: MICIMG 11:04
PROVIDERS: PCP Urology; Visit Provider Urology
DX: N20.1 Calculus of ureter (principal)
CPT/HCPCS: 74018